=== PATIENT | female | born 1950 | race Caucasian/White ===

== ENCOUNTER → 2020-06-01 | Day surgery (SDC) | payer MEDICARE, OTHER ==
[~2020-06-01] VITALS: Ht 160 cm; Wt 63.2 kg
[~2020-06-01] MED LIST: ACETAMINOPHEN500 M1 PO; ADVAIR 250-501 EACH INH; ADVAIR 250/5028 PUFF INH; CALCIUM + D SO1 EACH PO; CELEBREX **OUT100 MG PO; CENTRUM ADULTS1 EACH PO; CENTRUM SILVER1 EAC1 PO; COLACE100 MG PO; GLUCOSAMIN-CHO1 EACH PO; IBANDRONATE SO150 MG PO; LEVOTHYROXINE100 MCG PO; LIPITOR 10MG TA10 MG PO; METFORMIN HCL500 MG PO; MOTRIN600 MG PO; OXY-IR 5MG5 MG PO; PLAQUENIL200 MG PO; PRILOSEC20 MG PO; ULTRAM50 MG PO; VENTOLIN HFA IN18 GM INH; ZESTRIL5 MG PO; ZYRTEC10 MG PO
[2020-06-01 07:59] LABS: BUN/CREAT RATIO (CALC) 14.2 RATIO; CREATININE 1.27 mg/dL (0.51-0.95); POTASSIUM 4.8 mmol/L (3.5-5.1)
== END | disposition home or self-care (01) ==
LOC: FIS 06:48 → FAS 06:48 → FIS 08:00 → EDSTATUS 08:00
PROVIDERS: Anesthesiology
DX: D05.12 Intraductal carcinoma in situ of left breast (principal); N64.1 Fat necrosis of breast; E11.9 Type 2 diabetes mellitus without complications; E03.9 Hypothyroidism, unspecified; J44.9 Chronic obstructive pulmonary disease, unspecified; I10 Essential (primary) hypertension; M81.0 Age-related osteoporosis without current pathological fracture; E78.5 Hyperlipidemia, unspecified; K21.9 Gastro-esophageal reflux disease without esophagitis; Z87.891 Personal history of nicotine dependence; Z79.83 Long term (current) use of bisphosphonates; Z79.84 Long term (current) use of oral hypoglycemic drugs; Z79.899 Other long term (current) drug therapy; Z88.2 Allergy status to sulfonamides
CPT/HCPCS: 36415; 76098; 77065; 78195; 80048; A9541; J0690; J1100; J1644; J1885; J2250; J2405; J2704; J2710; J3010; J7120